=== PATIENT | male | born 1995 | race Caucasian/White ===

== ENCOUNTER 2018-01-04 04:50 | Emergency (ER) | payer OTHER, SELFPAY ==
[2018-01-04 04:51] VITALS: BP 133/75; PULSE 115; RESP 18; TEMP 39.4; O2SAT 95; BMI 25.5
--- NOTE | 2018-01-04 05:03 | CT_ITS ---
HISTORY: DIFFUSE AB PAIN.WITH PARTIAL COLON RESECTION DUE TO CROHNS TECHNIQUE: Helically acquired images were obtained of the abdomen and pelvis following IV contrast. A radiation dose optimization technique was used for this scan. IV Contrast dosage and agent: 100 cc Isovue-300 contrast Oral contrast: No recent administration reported. COMPARISON: None FINDINGS: LOWER CHEST: The lung bases appear clear. No pleural effusion or pericardial effusion. The liver, pancreas, gallbladder, and biliary system show no CT abnormality. Spleen: The spleen is moderately enlarged measuring 16.6 cm in length and shows homogenous attenuation. Bilateral renal excretion of contrast without evidence of hydronephrosis, pyelonephritis, or suspicious renal lesion. Adrenal glands are not enlarged. Retroperitoneum: The abdominal aorta and IVC are unremarkable. No ascites or retroperitoneal lymphadenopathy. GI tract: Partial resection right colon with ileocolic anastomosis. No bowel obstruction. No abscess or suspicious fluid collection seen. Oral contrast within the distal small bowel which is nondilated. Contrast has not yet reached the colon. No CT findings of active colitis. Pelvis: No free fluid or lymphadenopathy. No abscess seen. The urinary bladder is not well distended. BONES: No acute osseous abnormality identified. CT/Abdomen/Pelvis WITH Contrast IMPRESSION: 1. Moderate splenic enlargement. In this age group, infectious mononucleosis would be included in the differential. 2. Partial colectomy with ileocolic anastomosis. No complication seen. 3. No definite findings of active Crohn's disease. Individualized dose optimization techniques were used for this CT. at 0739 Reported and signed by: Cresencio Wilson MD Electronically Signed: Cresencio Wilson, at 7:37 EST Tel , Service support ,
[2018-01-04] MEDS: 0.9% Normal Saline 1,000 ML 1000 ML IV (05:08)
[2018-01-04] MEDS: proMETHazine 25 MG/ML Syringe 12.5 MG IV (05:08)
[2018-01-04 05:43] LABS: Absolute Lymphocyte Count 1.68 X10^3/ul (0.83-4.51); Absolute Neutrophil Count 5.3 X10^3/uL (2.0-7.7); Basophil# 0.01 X10^3/uL; Basophil% 0.1 % (0-1); Hematocrit 43.6 % (40-54); Hemoglobin 14.3 g/dl (13.0-16.5); Lymphocyte # 1.68 X10^3/ul (4.0); Lymphocyte % 21.3 % (19-41); Mean Corp Hgb Conc 32.8 g/gl (32-36); Mean Corpuscular Hgb 24.3 pg (27.0-32.0); Mean Platelet Vol. 10.1 fl (6.2-12.0); Monocyte# 0.87 X10^3/uL; Neutrophil # 5.32 X10^3/uL (2.7-7.7); Neutrophil % 67.5 % (47-70); Platelet Count 115 K/mm3 (150-450); RBC Distribution Width CV 15.1 % (11.6-14.6); RBC Distribution Width SD 40.8 fl (35.1-43.9); Red Blood Count 5.89 M/mm3 (4.6-6.2); White Blood Count 7.9 K/mm3 (4.4-11.0)
[2018-01-04 05:46] LABS: POSITIVE COUNT NO; POSITIVE DIFFERENTIAL NO; POSITIVE MORPHOLOGY NO
[2018-01-04] MEDS: Acetaminophen 500 MG Tablet 1000 MG PO (06:02)
[2018-01-04 06:03] VITALS: BP 125/73; PULSE 98; RESP 18; O2SAT 99
[2018-01-04 06:09] LABS: AST(SGOT) 19 U/L (15-37); Alanine Aminotransfer ALT/SGPT 22 U/L (16-61); Albumin, Serum 3.8 g/dL (3.2-5.0); Alkaline Phosphatase 68 U/L (45-117); Anion Gap 11 (5-15); BUN 13 mg/dL (7-18); BUN/Creat Ratio 11.1 RATIO (10-20); Calcium,Total 8.8 mg/dL (8.5-10.1); Chloride 101 mmol/L (98-107); Creatinine, Serum 1.17 mg/dL (0.70-1.30); EST Glomerular Filtration Rate 84 mL/min (>60); Est Glom Filt Rate - Afr Amer 102 mL/min (>60); Estimated Creatinine Clearance 113.82 ml/min; Globulin 3.9 g/dL (2.2-4.2); Glucose 106 mg/dL (74-106); Lipase 96 U/L (73-393); Potassium 3.8 mmol/L (3.5-5.1); Protein, Total 7.7 g/dL (6.4-8.2); Sodium Level 138 mmol/L (136-145)
[2018-01-04 07:16] VITALS: TEMP 38.7
--- NOTE | 2018-01-04 07:46 | ED.VISSUMM ---
- ER Visit Summary Date of Service: 01/04/18 Chief Complaint: Abdominal pain nausea and vomiting. History of Present Illness: The patient is a 22 M [employer] student who was sent over by the nurse. He states that he initially began have some vomiting 3 days ago but it has been more severe since yesterday. He reports about 5 episodes of nonbloody nonbilious emesis in the last day. He was seen at the [facility] and trying to drink brittany eden but continued to vomit so was sent over here for further evaluation. He has had a fever. He complains of mild aching mid abdominal pain which she describes as a discomfort. No diarrhea. He does complain of a headache and some myalgias. No congestion rhinorrhea sore throat or cough. Physical Examination: Heart rate 115 temperature 102.9 Moist mucous membranes Heart regular rhythm tachycardia Lungs are clear Abdomen soft nontender nondistended no guarding no rebound Alert Test Results: CBC CMP lipase notable for total bilirubin 1.[address] the abdomen and pelvis shows moderate splenomegaly and partial colectomy otherwise no acute process no evidence of active Crohn's disease. Emergency Department Course and Treatment: Patient was given Tylenol for fever IV fluids and Phenergan and reports that he feels much improved on reevaluation. He was advised on specific signs and symptoms to monitor for and conditions which should prompt return here to the emergency department for reevaluation. At this time I do not see evidence of focal bacterial infection. I do not believe he requires hospitalization. He is in agreement with this plan was discharged. Treatment Plan: [] Disposition: Discharge Impression: Abdominal pain Vomiting This note was generated with [employer] dictation software. It may contain incorrect words, spelling, and punctuation that were not noted in review of the chart prior to signing ED Disposition - Plan for ED Patient: Chief Complaint: Nausea/Vomiting Referrals: Care Physician,No Primary [Primary Care Provider] -
--- NOTE | 2018-01-04 07:49 | ED.DEP ---
ED Disposition - Plan for ED Patient: Chief Complaint: Nausea/Vomiting Instructions: ED Nausea Vomiting Prescriptions: proMETHazine tablet [Phenergan] 25 mg PO Q6H PRN PRN #10 tab PRN Reason: Nausea Referrals: Care Physician,No Primary [Primary Care Provider] -
[2018-01-04 08:00] VITALS: BP 121/62; PULSE 77; RESP 16; O2SAT 95
--- OUTSIDE RECORDS SUMMARY | 2018-02-15 19:07 | XMS RPT_ITS ---
:1995 Author Organization [facility] Care Team Providers Name Role Phone Ishmael Crawford Attending Unavailable Primay Care Physicia, No Primary Care Unavailable PROBLEMS PROBLEMS No Problem Records FoundPROCEDURES PROCEDURES No Procedure Records FoundRESULTS RESULTS DISCHARGE INSTRUCTION Observed: 01/04/2018 Status: F Source: [place] 7:50 AM [facility] Medical Records Department [address] [place] [address] Discharge Instruction 01/04/18 0749 MR#: [id number] Acct: [id number] Name: CHAO ESQUIVEL Rep #: [id number] : 1995 22 From: Ishmael Crawford MD PCP: Care Physician, No Primary Status: REG ER ED Disposition - Plan for ED Patient: Chief Complaint: Nausea/Vomiting Instructions: ED Nausea Vomiting Prescriptions: proMETHazine tablet [Phenergan] 25 mg PO Q6H PRN PRN #10 tab PRN Reason: Nausea Referrals: Care Physician,No Primary [Primary Care Provider] - What to do if you have Problems For any increased pain, shortness of breath, bleeding, nausea or vomiting, chest pain, or any unexpected problems, contact your Primary Care Provider. Call [facility] ([phone]) or report to the closest Emergency Room. Call 911 if necessary. 01/04/18 0750 <Electronically signed by Ishmael Crawford MD> Date Ishmael Crawford MD Cosigner Signature (If Indicated): Date CC: No Primary Care Physician EMERGENCY DEPARTMENT Observed: 01/04/2018 Status: F Source: [place] SUMMARY 7:48 AM [facility] [place] [facility] Medical Records Department [address] [place] [address] Emergency Department Summary 01/04/18 0746 MR#: [id number] Acct: [id number] Name: CHAO ESQUIVEL Rep #: [id number] : 1995 22 From: Ishmael Crawford MD PCP: Care Physician, No Primary Status: REG ER - ER Visit Summary Date of Service: 01/04/18 Chief Complaint: Abdominal pain nausea and vomiting. History of Present Illness: The patient is a 22 M [employer] student who was sent over by the nurse. He states that he initially began have some vomiting 3 days ago but it has been more severe since yesterday. He reports about 5 episodes of nonbloody nonbilious emesis in the last day. He was seen at the [facility] and trying to drink brittany eden but continued to vomit so was sent over here for further evaluation. He has had a fever. He complains of mild aching mid abdominal pain which she describes as a discomfort. No diarrhea. He does complain of a headache and some myalgias. No congestion rhinorrhea sore throat or cough. Physical Examination: Heart rate 115 temperature 102.9 Moist mucous membranes Heart regular rhythm tachycardia Lungs are clear Abdomen soft nontender nondistended no guarding no rebound Alert Test Results: CBC CMP lipase notable for total bilirubin 1.[address] the abdomen and pelvis shows moderate splenomegaly and partial colectomy otherwise no acute process no evidence of active Crohn's disease. Emergency Department Course and Treatment: Patient was given Tylenol for fever IV fluids and Phenergan and reports that he feels much improved on reevaluation. He was advised on specific signs and symptoms to monitor for and conditions which should prompt return here to the emergency department for reevaluation. At this time I do not see evidence of focal bacterial infection. I do not believe he requires hospitalization. He is in agreement with this plan was discharged. Treatment Plan: [] Disposition: Discharge Impression: Abdominal pain Vomiting This note was generated with [employer] dictation software. It may contain incorrect words, spelling, and punctuation that were not noted in review of the chart prior to signing ED Disposition - Plan for ED Patient: Chief Complaint: Nausea/Vomiting Referrals: Care Physician,No Primary [Primary Care Provider] - What to do if you have Problems For any increased pain, shortness of breath, bleeding, nausea or vomiting, chest pain, or any unexpected problems, contact your Primary Care Provider. Call [facility] ([phone]) or report to the closest Emergency Room. Call 911 if necessary. 01/04/18 0748 <Electronically signed by Ishmael Crawford MD> Date Ishmael Crawford MD Cosigner Signature (If Indicated): Date CC: No Primary Care Physician CBC W/DIFF, AUTOMATED Collected: 01/04/2018 Status: F Source: [place] 5:08 AM [facility] [place] TYPE CODE TESTS RESULT OUT OF RANGE REFERENCE UNITS LAB L100.1000 4.4-11.0 K/mm3 Normal WBC 7.9 LAB L100.1200 4.6-6.2 M/mm3 Normal RBC 5.89 LAB L100.1300 13.0-16.5 g/dl Normal HGB 14.3 LAB L100.1400 40-54 % Normal HCT 43.6 LAB L100.1500 80-94 fL Low MCV 74.0 LAB L100.1600 27.0-32.0 pg Low MCH 24.3 LAB L100.1700 32-36 g/gl Normal MCHC 32.8 LAB L100.1810 11.6-14.6 % High RDW CV 15.1 LAB L100.1820 35.1-43.9 fl Normal RDW SD 40.8 LAB L100.1900 150-450 K/mm3 Low PLT 115 LAB L100.2000 6.2-12.0 fl Normal MPV 10.1 LAB L100.2100 47-70 % Normal NEUT% 67.5 LAB L100.2200 19-41 % Normal LY% 21.3 LAB L100.2300 0-10 % High MONO% 11.0 LAB L100.2400 0-5 % Normal EO% 0.0 LAB L100.2500 0-1 % Normal BASO% 0.1 LAB L100.2550 0.0-0.9 % Normal IM GRAN % 0.100 Result Comment: IG% - Immature Granulocytes (promyelocytes, myelocytes and metamyelocytes) > 1% indicates that a LEFT SHIFT is Present. LAB L100.2620 2.0-7.7 X10 3/uL Normal Absolute Neut 5.3 LAB L100.2720 0.83-4.51 X10 3/ul Normal Absolute Lymph 1.68 Performed By: #### L100.0100 #### [facility] [address] [place], [address] COMPREHENSIVE METABOLIC Collected: 01/04/2018 Status: F Source: [facility] 5:08 AM [facility] TYPE CODE TESTS RESULT OUT OF RANGE REFERENCE UNITS LAB L501.0100 74-106 mg/dL Normal GLU 106 Result Comment: Fasting Glucose result from 100 to 125 mg/dL suggests IMPAIRED HOMEOSTASIS per A.D.A. criteria. Please note revised GLUCOSE reference range effective 2017. LAB L501.1000 7-18 mg/dL Normal BUN 13 LAB L501.1100 0.70-1.30 mg/dL Normal CREAT,SERUM 1.17 Result Comment: The validity of the calculated GFR AND GFRAA in patients over 70 years has not been determined. Clinical correlation is essential. LAB L501.1110 >60 mL/min Normal EST GFR 84 Result Comment: Non- GFR Calc LAB L501.1115 >60 mL/min Normal EST GFR - AA 102 Result Comment: GFR Calc LAB L501.1255 ml/min Normal Estimated CRCL 113.82 LAB L501.1300 10-20 RATIO BUN/CRE Normal 11.1 LAB L501.1500 6.4-8. g/dL 2 T PROT Normal 7.7 LAB L501.1800 3.2-5. g/dL 0 ALB Normal 3.8 LAB L501.1950 2.2-4. g/dL 2 GLOB Normal 3.9 LAB L501.2000 0.9-2. RATIO 4 A/G Normal 1.0 LAB L501.2200 8.5-10 mg/dL .1 CA Normal 8.8 LAB L501.4100 15-37 U/L AST Normal 19 LAB L501.4305 45-117 U/L ALK P Normal 68 LAB L501.4405 16-61 U/L ALT Normal 22 LAB L501.4600 0.20-1 mg/dL High .00 T BILI 1.60 LAB L501.5300 136-14 mmol/L 5 NA Normal 138 LAB L501.5600 3.5-5. mmol/L 1 K Normal 3.8 LAB L501.5900 98-107 mmol/L CL Normal 101 LAB L501.6100 21.0-3 mmol/L 2.0 CO2 Normal 26.0 LAB L501.6200 5-15 GAP Normal 11 Performed By: #### L500.4050, L501.2450 #### [facility] [address] [place], [address] LIPASE Collected: 01/04/2018 Status: F Source: [place] 5:08 AM [facility] [place] TYPE CODE TESTS RESULT OUT OF RANGE REFERENCE UNITS LAB L501.2450 73-393 U/L Normal LIPASE 96 Performed By: #### L500.4050, L501.2450 #### [facility] [address] [place], [address] ABDOMEN/PELVIS WITH Observed: 01/04/2018 Status: F Source: [place] CONTRAST 5:04 AM [facility] [place] [facility] Imaging Services [address] [place] [address] Abdomen/Pelvis WITH Contrast MR#: [id number] Acct: [id number] Name: CHAO ESQUIVEL Rep #: [id number] : 1995 M 22 From: Cresencio Wilson MD PCP: Care Physician, No Primary Status: REG ER Study: Abdomen/Pelvis WITH Contrast Date of Exam: 01/04/18 Exam# [id number] Ordering Dr: Ishmael Crawford MD HISTORY: DIFFUSE AB PAIN.WITH PARTIAL COLON RESECTION DUE TO CROHNS TECHNIQUE: Helically acquired images were obtained of the abdomen and pelvis following IV contrast. A radiation dose optimization technique was used for this scan. IV Contrast dosage and agent: 100 cc Isovue-300 contrast Oral contrast: No recent administration reported. COMPARISON: None FINDINGS: LOWER CHEST: The lung bases appear clear. No pleural effusion or pericardial effusion. The liver, pancreas, gallbladder, and biliary system show no CT abnormality. Spleen: The spleen is moderately enlarged measuring 16.6 cm in length and shows homogenous attenuation. Bilateral renal excretion of contrast without evidence of hydronephrosis, pyelonephritis, or suspicious renal lesion. Adrenal glands are not enlarged. Retroperitoneum: The abdominal aorta and IVC are unremarkable. No ascites or retroperitoneal lymphadenopathy. GI tract: Partial resection right colon with ileocolic anastomosis. No bowel obstruction. No abscess or suspicious fluid collection seen. Oral contrast within the distal small bowel which is nondilated. Contrast has not yet reached the colon. No CT findings of active colitis. Pelvis: No free fluid or lymphadenopathy. No abscess seen. The urinary bladder is not well distended. BONES: No acute osseous abnormality identified. CT/Abdomen/Pelvis WITH Contrast IMPRESSION: 1. Moderate splenic enlargement. In this age group, infectious mononucleosis would be included in the differential. 2. Partial colectomy with ileocolic anastomosis. No complication seen. 3. No definite findings of active Crohn's disease. Individualized dose optimization techniques were used for this CT. at 0739 Reported and signed by: Cresencio Wilson MD Electronically Signed: Cresencio Wilson, at 7:37 EST Tel , Service support , CC: No Primary Care Physician; Ishmael Crawford MD Classer: Signed ALLERGIES ALLERGIES DATE TYPE / CODE NAME / CODE REACTION SEVERITY SOURCE 01/04/2018 Drug No Known Unknown [facility] Allergy/4160 Allergies/F00 [facility] 16067(SNOMED [id number](RXNOR Repository CT) M) ENCOUNTERS ENCOUNTERS ADMIT/DISCHARGE ACCOUNT ADMITTING ENCOUNTER LOCATION SOURCE NUMBER CLASS 01/04/2018/11/27/ [id number] [facility] [place] [facility] Rep[facility] PAYERS PAYERS ENCOUNTER GUARANTOR PAYER SUBSCRIBER SOURCE 01/04/2018 CHAO ASH [facility] [address]Oyj: Number: Repository [id number] (HP) Date:[id number] [facility] [place] [address]FU: 01/04/2018 Secondary NOT ILDEFONSO Carter Insurance:SELF PAY [facility] Number: Effective Repository Date:2018-01-04"
== END 2018-01-04 08:00 | disposition home or self-care (01) ==
PROVIDERS: Emergency Provider Emergency Medicine
DX: R10.9 Unspecified abdominal pain (principal); R11.2 Nausea with vomiting, unspecified; R51 Headache; M79.10 Myalgia, unspecified site; R50.9 Fever, unspecified; R16.1 Splenomegaly, not elsewhere classified; Z90.49 Acquired absence of other specified parts of digestive tract
CPT/HCPCS: 74177; 80053; 83690; 85025; 96361; 96374; 99283; J7030; Q9967; A4216